=== PATIENT | female | born 1975 | race Caucasian/White ===

== ENCOUNTER 2023-05-21 11:30 | Outpatient (OUT) | payer OTHER, SELFPAY ==
--- NOTE | 2023-05-21 11:50 | XR_ITS ---
[address] [address] Patient Name: JAGDEEP PARK MRN: [id number] date: 1975 Sex: F Assigned Patient Location: LAB Current Patient Location: LAB Accession/Order Number: [id number] Exam Date: 05/21/2023 12:00 Report Date: 05/21/2023 13:19 At the request of: DIMA SANTOS Procedure: XR lumbar spine 2-3V EXAMINATION: XR lumbar spine 2-3V HISTORY: Low Back Pain Unspecified M54.50 COMPARISON: XR L-spine 03/13/2012 FINDINGS: BONES: Mild right convex curvature lumbar spine. Mild right lateral wedging of L4 superior endplate. Posterior mechanical fusion L5-S1. Moderate degenerative facet arthropathy L4-5, L5-S1. DISC SPACES: Moderate narrowing L1-2, L2-3, L3-4, L4-5. Marked narrowing L5-S1. PARASPINOUS: Negative. No paraspinous abnormality is seen. OTHER: Negative. XR/XR lumbar spine 2-3V IMPRESSION: 1. Mechanical fusion of L5-S1 without evidence of hardware failure. 2. Multilevel degenerative disc disease; greater than expected for patient's age. 3. Mild right lateral wedging of L4 superior endplate; degenerative versus compression fracture. No recent comparative studies. Consider CT imaging for further evaluation if clinically indicated. Electronically authenticated by: JOSE G ELIZABETH Date: 05/21/2023 13:19
[2023-05-21 12:10] LABS: Estimated Average Glucose 120 mg/dL; Glycohemoglobin A1C 5.8 % (4.5-6.2)
[2023-05-21 12:18] LABS: Basophils Absolute Auto 0.1 10^3/uL (0.0-0.1); Basophils Percent Auto 1.9 % (0.2-2.0); Eosinophils Absolute Auto 0.9 10^3/uL (0.0-0.7); Eosinophils Percent Auto 12.6 % (0.9-7.0); Hematocrit 38.7 % (36.0-48.0); Hemoglobin 12.7 g/dL (12.0-16.0); Immature Granulocytes Abs Auto 0.03 10^3/uL (0.00-0.03); Immature Granulocytes Pct Auto 0.4 % (0.0-0.5); Lymphocytes Absolute Auto 1.7 10^3/uL (1.2-3.8); Lymphocytes Percent Auto 25.3 % (20.5-60.0); Mean Corpuscular HGB Conc 32.8 g/dL (29.9-35.2); Mean Corpuscular Hemoglobin 29.1 pg (26.7-34.0); Mean Corpuscular Volume 88.6 fL (81.0-99.0); Mean Platelet Volume 9.2 fL (9.5-13.5); Monocytes Absolute Auto 0.4 10^3/uL (0.3-0.8); Monocytes Percent Auto 5.7 % (1.7-12.0); Neutrophils Absolute Auto 3.7 10^3/uL (1.4-6.5); Neutrophils Percent Auto 54.1 % (43.0-75.0); Platelet Count 410 10^3/uL (150-450); Red Blood Count 4.37 10^6/uL (4.20-5.40); Red Cell Distribution Width 12.9 % (11.0-15.0); White Blood Count 6.9 10^3/uL (4.0-11.0)
[2023-05-21 12:54] LABS: Alanine Aminotransferase 20 U/L (14-59); Albumin Globulin Ratio 1.2; Albumin Level 4.1 g/dL (3.4-5.0); Alkaline Phosphatase 57 U/L (46-116); Anion Gap 9.5; Aspartate Amino Transferase 14 U/L (15-37); BUN Creatinine Ratio 17.1; Bilirubin Total 0.4 mg/dL (0.2-1.0); Calcium 8.8 mg/dL (8.5-10.1); Carbon Dioxide 29.3 mmol/L (21.0-32.0); Chloride 99 mmol/L (98-107); Chol HDL Ratio 4.3; Cholesterol 236 mg/dL (<=200); Estimated GFR (African America >60 (>=60); Estimated GFR (Non-African Ame >60 (>=60); Free T3 2.23 pg/mL (2.18-3.98); Globulin 3.5 g/dL; Glucose 106 mg/dL (74-106); HDL Cholesterol 55 mg/dL (40-60); Potassium 3.8 mmol/L (3.5-5.1); Sodium 134 mmol/L (136-145); Thyroid Stimulating Hormone 23.017 uIU/mL (0.358-3.740); Total Protein 7.6 g/dL (6.4-8.2); Triglycerides 140 mg/dL (<=150)
[2023-05-22 10:08] LABS: Insulin 9.5 uIU/mL (2.6-24.9)
== END 2023-05-21 11:31 | disposition home or self-care (01) ==
PROVIDERS: PCP Nurse Practitioner Family; Visit Provider Nurse Practitioner Family
DX: M54.50 Low back pain, unspecified (principal); E03.9 Hypothyroidism, unspecified; M51.36 Other intervertebral disc degeneration, lumbar region; Z98.1 Arthrodesis status; M48.56XA Collapsed vertebra, not elsewhere classified, lumbar region, initial encounter for fracture
CPT/HCPCS: 36415; 72100; 80053; 80061; 82306; 83036; 83525; 83540; 84436; 84443; 84481; 85025

== ENCOUNTER 2024-04-20 19:01 | Emergency (ER) | payer OTHER, SELFPAY ==
[2024-04-20 19:06] VITALS: BP 148/78; PULSE 56; TEMP 36.7; O2SAT 100; BMI 37.1
--- NOTE | 2024-04-20 19:29 | ED_ITS ---
HPI - Abdominal Pain General Chief Complaint: Abdominal Pain Stated Complaint: Abdominal Pain Time Seen by Provider: 04/20/24 19:07 Source: patient Mode of arrival: walk-in Limitations: no limitations History of Present Illness HPI narrative: This 48 female with a history of diverticulitis and colitis presents for evaluation of generalized abdominal pain with nausea. She states the symptoms started yesterday. She has been having cramps that feel like she is going to have diarrhea but has not had any diarrhea. She has not had any black stools. She has not had any fevers or chills. She states that eating makes her pain worse so she has not been eating. She has not vomited. She has been passing gas. She has had her gallbladder and appendix removed, she has had an ablation of her uterus and denies the possibility of . Related Data Home Medications ?Medication ?Instructions ?Recorded ?Confirmed acetaminophen 500 mg tablet 1,000 mg PO Q6H PRN fever or pain 04/20/24 04/20/24 albuterol sulfate 90 mcg/actuation 2 puff inhalation Q6H PRN 04/20/24 04/20/24 aerosol inhaler shortness of breath or wheezing buprenorphine 8 mg-naloxone 2 mg 1 tab sublingual DAILY 04/20/24 04/20/24 sublingual tablet clobetasol 0.05 % topical cream 1 applic topical PRN skin rash 04/20/24 fluoxetine 40 mg capsule 40 mg PO DAILY 04/20/24 04/20/24 fluticasone propionate 115 2 puff inhalation Q12H 04/20/24 04/20/24 mcg-salmeterol 21 mcg/actuation HFA inhaler (Advair HFA) ibuprofen 600 mg tablet 600 mg PO Q8H PRN fever or pain 04/20/24 04/20/24 ixekizumab 80 mg/mL subcutaneous 80 mg subcut .monthly 04/20/24 04/20/24 auto-injector (Taltz Autoinjector) levothyroxine 75 mcg tablet 75 mcg PO DAILY 04/20/24 04/20/24 montelukast 10 mg tablet 10 mg PO DAILY 04/20/24 04/20/24 omeprazole 40 mg capsule,delayed 40 mg PO DAILY 04/20/24 04/20/24 release simvastatin 20 mg tablet 20 mg PO DAILY 04/20/24 04/20/24 Allergies Allergy/AdvReac Type Severity Reaction Status Date / Time methotrexate Allergy Rash Verified 04/20/24 19:11 Review of Systems ROS Status of ROS 10 or more systems reviewed and unremark able except as noted in history and below Exam Narrative Exam Narrative: Vital signs and Nursing Notes reviewed: Patient is afebrile, she is mildly bradycardic with a pulse of 56, blood pressure is mildly elevated at 148/78, she is not hypoxic with pulse ox of 100% on room air General: Awake, alert, oriented, nontoxic but mildly uncomfortable appearing overweight female, she is rubbing her abdomen, no respiratory distress, no active vomiting HEENT: Normocephalic atraumatic, mucous membranes are moist and pink, eyes are clear, normal conjunctiva, vision is grossly intact, posterior pharynx is normal in appearance. Neck: Supple, no meningeal signs, no anterior or posterior cervical lymphadenopathy Chest: Lungs are clear to auscultation with good air entry, there is no wheezing rhonchi or rales appreciated no accessory muscle use, patient is speaking in complete sentences-no chest wall tenderness to palpation CVS: Regular rate and rhythm S1-S2, no murmurs rubs or gallops, pulses are brisk and equal bilaterally ABD: Soft, generalized abdominal tenderness, localizes to the right mid quadrant and left lower quadrant with no rebound guarding or rigidity, bowel sounds are mildly hypoactive Extremities: Moving all extremities, no lower extremity tenderness or swelling noted, negative Homans' sign, pulses are brisk and equal bilaterally Skin: Normal in appearance without rash,pallor, petechiae or purpura Neuro: No focal deficits Constitutional Vital Signs, click to edit/add: Last Vital Signs Temp 98.1 F 04/20/24 19:06 Pulse 56 L 04/20/24 19:06 Resp 16 04/20/24 19:06 BP 148/78 H 04/20/24 19:06 Pulse Ox 100 04/20/24 19:06 O2 Del Method Room Air 04/20/24 19:06 Course Vital Signs Vital signs: Vital Signs Temperature 98.1 F 04/20/24 19:06 Pulse Rate 56 L 04/20/24 19:06 Respiratory Rate 16 04/20/24 19:06 Blood Pressure 148/78 H 04/20/24 19:06 Pulse Oximetry 100 04/20/24 19:06 Oxygen Delivery Method Room Air 04/20/24 19:06 Temperature 98.1 F 04/20/24 19:06 Pulse Rate 56 L 04/20/24 19:06 Respiratory Rate 16 04/20/24 19:06 Blood Pressure 148/78 H 04/20/24 19:06 Pulse Oximetry 100 04/20/24 19:06 Oxygen Delivery Method Room Air 04/20/24 19:06 MDM - Abdominal Pain MDM Narrative Medical decision making narrative: This 48-year-old female with a history of colitis and diverticulitis presents for evaluation of generalized abdominal pain with nausea and cramping making it feel like she is going to have diarrhea. She has not had any fevers, chills, weight loss or black tarry stools. She is on Suboxone. She had generalized abdominal tenderness with no focal tenderness. She is status postcholecystectomy and appendectomy. An IV was placed and she was medicated with Bentyl, IV fluids, Zofran and Toradol. Routine labs are reviewed. Her labs are normal. She has a normal white count and hemoglobin. Electrolytes and liver function tests are normal. Lipase is normal, urine shows 5-10 white blood cells per high-power field but is contaminated with multiple squamous epithelial cells. This will not be treated pending culture results. CT scan of the abdomen pelvis was ordered. CT scan shows an anterior abdominal wall hernia containing a portion of colon. Anterior abdominal wall defect measures 7.2 cm in width. There is no notation of any bowel obstruction. This was discussed with the patient and she was given a copy of her CT scan. She states she has had this hernia repaired twice once in [place] and once by Dr. Gay, she will be referred back to Dr. Gay. Encouraged her to have a bland diet so that she does not have any large volume of stool moving through her intestines at any time and if she should have severe abdominal pain nausea vomiting or inability to pass gas that she should return to the emergency department because these are signs of bowel obstruction/incarceration. She will be discharged home with a prescription for Bentyl and Zofran. Medical Records Medical records narrative: The [address] [address] [address] Scan Report Draft Patient: JAGDEEP PARK MR#: [id number] : 1975 Acct:[id number] Age/Sex: 48 / F ADM Date: 04/20/24 Loc: ER Attending Dr: Ordering Physician: Cuca Cortez Date of Service: 04/20/24 Procedure(s): CT abdomen pelvis w con Accession Number(s): [id number] cc: ~ [address] [address] Patient Name: JAGDEEP PARK MRN: [facility]:[id number] date: 1975 Sex: F Assigned Patient Location: ER Current Patient Location: ER Accession/Order Number: [id number] Exam Date: 04/20/2024 20:38 Report Date: 04/20/2024 22:30 At the request of: CUCA CORTEZ Procedure: CT abdomen pelvis w con EXAM: CT abdomen pelvis w con HISTORY: abd pain, hx diverticulitis COMPARISON: 05/02/2010 TECHNIQUE: Dose reduction techniques were achieved by using automated exposure control and/or adjustment of mA and/or kV according to patient size and/or use of iterative reconstruction technique. CT of the abdomen and pelvis with contrast. FINDINGS: Lung bases are clear. Heart size is normal. No pericardial effusion. Liver, spleen, pancreas are normal. Distal esophagus, stomach and duodenum are normal. Anterior abdominal wall hernia defect containing a portion of colon. The anterior abdominal wall defect measures 7.2 cm in width. Right adrenal nodule, not well characterized by this exam, may represent an adrenal adenoma. Definitive characterization could be made by multiphase MRI or CT. Left adrenal gland is normal. Kidneys are normal. No hydronephrosis. No hydroureter. No bladder stones. No bladder wall thickening. No retroperitoneal adenopathy. No inguinal or pelvic adenopathy. Cholecystectomy. No colonic dilation. No pericolonic fat stranding. Small uterine fibroids. Moderate degeneration of the bilateral sacroiliac joints. Moderate to advanced facet joint arthropathy from T12-L1 through L4-L5 disc spaces. Posterior spinal fusion hardware at L5-S1 with bilateral pedicle screws and interconnecting rods as well as successful osseous fusion. Mild degeneration of the lower thoracic spine. CT/CT abdomen pelvis w con IMPRESSION: 1. No colonic dilation. No pericolonic fat stranding. 2. Anterior abdominal wall hernia defect containing a portion of colon. The anterior abdominal wall defect measures 7.2 cm in width. 3. Cholecystectomy. 4. No hydronephrosis. No hydroureter. 5. No bladder stones. No focal bladder wall thickening. Electronically authenticated by: SILVIO RIVERA Date: 04/20/2024 22:30 Lab Data Labs: Lab Results 04/20/24 04/20/24 Range/Units 19:32 19:35 WBC 7.7 (4.0-11.0) 10^3/uL RBC 4.33 (4.20-5.40) 10^6/uL Hgb 12.6 (12.0-16.0) g/dL Hct 38.8 (36.0-48.0) % MCV 89.6 (81.0-99.0) fL MCH 29.1 (26.7-34.0) pg MCHC 32.5 (29.9-35.2) g/dL RDW 12.6 (11.0-15.0) % Plt Count 427 (150-450) 10^3/uL MPV 9.4 L (9.5-13.5) fL Neut % (Auto) 51.1 (43.0-75.0) % Lymph % (Auto) 33.6 (20.5-60.0) % [place] % (Auto) 6.4 (1.7-12.0) % Eos % (Auto) 7.6 H (0.9-7.0) % Baso % (Auto) 1.0 (0.2-2.0) % Neut # (Auto) 3.9 (1.4-6.5) 10^3/uL Lymph # (Auto) 2.6 (1.2-3.8) 10^3/uL [place] # (Auto) 0.5 (0.3-0.8) 10^3/uL Eos # (Auto) 0.6 (0.0-0.7) 10^3/uL Baso # (Auto) 0.1 (0.0-0.1) 10^3/uL Abs Immat Gran (auto) 0.02 (0.00-0.03) 10^3/uL Imm/Tot Granulo (auto) 0.3 (0.0-0.5) % Sodium 137 (136-145) mmol/L Potassium 3.5 (3.5-5.1) mmol/L Chloride 100 (98-107) mmol/L Carbon Dioxide 30.6 (21.0-32.0) mmol/L Anion Gap 9.9 BUN 11.0 (7.0-18.0) mg/dL Creatinine 0.89 (0.55-1.02) mg/dL Est GFR ( Amer) >60 (>=60) Est GFR (Non-Af Amer) >60 (>=60) BUN/Creatinine Ratio 12.4 Glucose 115 H (74-106) mg/dL Calcium 8.6 (8.5-10.1) mg/dL Total Bilirubin 0.5 (0.2-1.0) mg/dL AST 12 L (15-37) U/L ALT 18 (14-59) U/L Alkaline Phosphatase 64 (46-116) U/L Total Protein 7.0 (6.4-8.2) g/dL Albumin 3.7 (3.4-5.0) g/dL Globulin 3.3 g/dL Albumin/Globulin Ratio 1.1 Lipase 17.0 (16.0-77.0) U/L Urine Color Yellow (YELLOW) Urine Clarity Clear (CLEAR) Urine pH 6.0 (5.0-9.0) Ur Specific [place] >=1.030 A (1.005-1.025) Urine Protein Negative (NEG/TRACE) mg/dL Urine Glucose (UA) Negative (NEGATIVE) mg/dL Urine Ketones Negative (NEGATIVE) mg/dL Urine Occult Blood Negative (NEGATIVE) Urine Nitrite Negative (NEGATIVE) Urine Bilirubin Negative (NEGATIVE) Urine Urobilinogen 1.0 (0.2-1.0) EU/dL Ur Leukocyte Esterase Trace A (NEGATIVE) Urine RBC None seen (0-2) #/HPF Urine WBC 5-10 A (NONE SEEN) #/HPF Ur Squamous Epith Cells Many A (NONE/RARE) #/LPF Urine Crystals None seen (None Seen) #/HPF Amorphous Sediment Moderate Urine Bacteria None seen (NONE SEEN) #/HPF Urine Casts None seen (NONE SEEN) #/LPF Urine Mucus Small A (NONE SEEN) Ur Culture Indicated? Yes Discharge Plan Discharge Stand Alone Forms: Portal Instructions Chief Complaint: Abdominal Pain Clinical Impression: Ventral hernia Patient Disposition: Home, Self-Care Time of Disposition Decision: 22:42 Condition: Good Prescriptions / Home Meds: No Action acetaminophen 500 mg tablet 1,000 mg PO Q6H PRN (Reason: fever or pain) albuterol sulfate 90 mcg/actuation HFA aerosol inhaler 2 puff INHALATION Q6H PRN (Reason: shortness of breath or wheezing) clobetasol 0.05 % cream 1 applic TOPICAL PRN (Reason: skin rash) fluoxetine 40 mg capsule 40 mg PO DAILY fluticasone propion-salmeterol [Advair HFA] 115-21 mcg/actuation HFA aerosol inhaler 2 puff INHALATION Q12H ibuprofen 600 mg tablet 600 mg PO Q8H PRN (Reason: fever or pain) Taltz Autoinjector 80 mg/mL auto-injector 80 mg SUBCUT .monthly levothyroxine 75 mcg tablet 75 mcg PO DAILY montelukast 10 mg tablet 10 mg PO DAILY omeprazole 40 mg capsule,delayed release(DR/EC) 40 mg PO DAILY simvastatin 20 mg tablet 20 mg PO DAILY buprenorphine-naloxone 8-2 mg tablet, sublingual 1 tab sublingual DAILY Rx Instructions: 1 and 3/4 daily Print Language: Uzbek Instructions: Ventral Hernia Repair (DC) Referrals: Wesly Gay MD [Physician] - As soon as possible Rhoda Molina NP [Primary Care Provider] - 1 week
[2024-04-20] MEDS: 0.9 % SODIUM CHLORIDE 1,000 ML 1000 ML IV (19:43)
[2024-04-20] MEDS: ONDANSETRON PF 4 MG/2 ML VIAL IV (19:43)
[2024-04-20] MEDS: KETOROLAC TROMETHAMINE 30 MG/ML VIAL IVP (19:43)
[2024-04-20] MEDS: DICYCLOMINE HCL 10 MG CAPSULE 20 MG PO (19:43)
[2024-04-20 19:53] LABS: Basophils Absolute Auto 0.1 10^3/uL (0.0-0.1); Eosinophils Absolute Auto 0.6 10^3/uL (0.0-0.7); Eosinophils Percent Auto 7.6 % (0.9-7.0); Hematocrit 38.8 % (36.0-48.0); Hemoglobin 12.6 g/dL (12.0-16.0); Immature Granulocytes Abs Auto 0.02 10^3/uL (0.00-0.03); Immature Granulocytes Pct Auto 0.3 % (0.0-0.5); Lymphocytes Absolute Auto 2.6 10^3/uL (1.2-3.8); Lymphocytes Percent Auto 33.6 % (20.5-60.0); Mean Corpuscular HGB Conc 32.5 g/dL (29.9-35.2); Mean Corpuscular Hemoglobin 29.1 pg (26.7-34.0); Mean Corpuscular Volume 89.6 fL (81.0-99.0); Mean Platelet Volume 9.4 fL (9.5-13.5); Monocytes Absolute Auto 0.5 10^3/uL (0.3-0.8); Monocytes Percent Auto 6.4 % (1.7-12.0); Neutrophils Absolute Auto 3.9 10^3/uL (1.4-6.5); Neutrophils Percent Auto 51.1 % (43.0-75.0); Platelet Count 427 10^3/uL (150-450); Red Blood Count 4.33 10^6/uL (4.20-5.40); Red Cell Distribution Width 12.6 % (11.0-15.0); White Blood Count 7.7 10^3/uL (4.0-11.0)
[2024-04-20 19:54] LABS: Bilirubin Urine NEGATIVE (NEGATIVE); Blood Urine NEGATIVE (NEGATIVE); Clarity Urine CLEAR (CLEAR); Color Urine YELLOW (YELLOW); Glucose Urine UA NEGATIVE (NEGATIVE); Ketones Urine NEGATIVE (NEGATIVE); Leukocyte Esterase Urine TRACE (NEGATIVE); Nitrite Urine NEGATIVE (NEGATIVE); Protein Urine NEGATIVE (NEG/TRACE); Specific Gravity Urine >=1.030 (1.005-1.025)
[2024-04-20 20:00] LABS: Amorphous Sediment Urine MODERATE; Bacteria Urine NONE SEEN #/HPF (NONE SEEN); Crystals Seen? None Seen #/HPF (None Seen); Mucus Urine SMALL (NONE SEEN); RBC Urine NONE SEEN #/HPF (0-2); Squamous Epithelial Cell Urine MANY #/LPF (NONE/RARE)
[2024-04-20 20:01] LABS: Cast Seen? NONE SEEN #/LPF (NONE SEEN); Urine Culture Indicated YES
[2024-04-20 20:07] LABS: Alanine Aminotransferase 18 U/L (14-59); Albumin Globulin Ratio 1.1; Albumin Level 3.7 g/dL (3.4-5.0); Alkaline Phosphatase 64 U/L (46-116); Anion Gap 9.9; Aspartate Amino Transferase 12 U/L (15-37); BUN Creatinine Ratio 12.4; Bilirubin Total 0.5 mg/dL (0.2-1.0); Calcium 8.6 mg/dL (8.5-10.1); Carbon Dioxide 30.6 mmol/L (21.0-32.0); Chloride 100 mmol/L (98-107); Estimated GFR (African America >60 (>=60); Estimated GFR (Non-African Ame >60 (>=60); Globulin 3.3 g/dL; Glucose 115 mg/dL (74-106); Potassium 3.5 mmol/L (3.5-5.1); Sodium 137 mmol/L (136-145)
--- NOTE | 2024-04-20 20:17 | CT_ITS ---
[address] [address] Patient Name: JAGDEEP PARK MRN: [id number] date: 1975 Sex: F Assigned Patient Location: ER Current Patient Location: ER Accession/Order Number: [id number] Exam Date: 04/20/2024 20:38 Report Date: 04/20/2024 22:33 At the request of: KENYON MARKER Procedure: CT abdomen pelvis w con EXAM: CT abdomen pelvis w con HISTORY: abd pain, hx diverticulitis COMPARISON: 05/02/2010 TECHNIQUE: Dose reduction techniques were achieved by using automated exposure control and/or adjustment of mA and/or kV according to patient size and/or use of iterative reconstruction technique. CT of the abdomen and pelvis with contrast. FINDINGS: Lung bases are clear. Heart size is normal. No pericardial effusion. Liver, spleen, pancreas are normal. Distal esophagus, stomach and duodenum are normal. Anterior abdominal wall hernia defect containing a portion of colon. The anterior abdominal wall defect measures 7.2 cm in width. Right adrenal nodule, not well characterized by this exam, may represent an adrenal adenoma. Definitive characterization could be made by multiphase MRI or CT. Left adrenal gland is normal. Kidneys are normal. No hydronephrosis. No hydroureter. No bladder stones. No bladder wall thickening. No retroperitoneal adenopathy. No inguinal or pelvic adenopathy. Cholecystectomy. No colonic dilation. No pericolonic fat stranding. Small uterine fibroids. Moderate degeneration of the bilateral sacroiliac joints. Moderate to advanced facet joint arthropathy from T12-L1 through L4-L5 disc spaces. Posterior spinal fusion hardware at L5-S1 with bilateral pedicle screws and interconnecting rods as well as successful osseous fusion. Mild degeneration of the lower thoracic spine. CT/CT abdomen pelvis w con IMPRESSION: 1. No colonic dilation. No pericolonic fat stranding. 2. Anterior abdominal wall hernia defect containing a portion of colon. The anterior abdominal wall defect measures 7.2 cm in width. 3. Cholecystectomy. 4. No hydronephrosis. No hydroureter. 5. No bladder stones. No focal bladder wall thickening. Electronically authenticated by: SILVIO RIVERA Date: 04/20/2024 22:33
[2024-04-20] MEDS: ACETAMINOPHEN 325 MG TABLET 650 MG PO (22:20)
== END 2024-04-20 22:59 | disposition home or self-care (01) ==
PROVIDERS: Emergency Provider Emergency Medicine; PCP Nurse Practitioner Family
DX: K43.9 Ventral hernia without obstruction or gangrene (principal); Z90.49 Acquired absence of other specified parts of digestive tract
CPT/HCPCS: 36415; 74177; 80053; 81001; 83690; 85025; 87086; 96374; 96375; 99285; J1885; J2405; Q9967